=== PATIENT | male | born 1970 | race Caucasian/White ===

== ENCOUNTER → 2016-10-02 | Outpatient (CLI) | payer BC ==
--- NOTE | 2016-10-03 08:29 | KCIC ---
PROCEDURE MRI lumbar spine without contrast. HISTORY Chronic left back pain. Left hip pain. TECHNIQUE Sagittal T1, sagittal T2, sagittal STIR, axial T1, and axial T2 sequences are provided. COMPARISON None. FINDINGS There is 6 millimeters of retrolisthesis at L5-S1. There is otherwise no malalignment. There is fatty replacement of the endplates at several levels, most notably L4-L5 and L5-S1. There is no marrow edema or worrisome marrow lesion. Disc desiccation is noted at L1-L2, L4-L5, and L5-S1. Mild narrowing of disc height is noted at these 3 levels as well, most notably L5-S1. The conus medullaris is normal in signal intensity and in position. Subcutaneous edema is noted. The numbering system assumes 5 lumbar type vertebral bodies. Findings by individual level are as follows: L1-L2: Mild disc bulge is noted without canal or foraminal compromise. L2-L3: Mild disc bulge and minimal facet hypertrophy are noted. There is no canal or foraminal compromise. L3-L4: Mild disc bulge and mild facet hypertrophy are noted. Epidural fat is mildly prominent. There is no canal stenosis, midline AP diameter of the thecal sac 14 millimeters. There is no foraminal narrowing. L4-L5: There is a diffuse disc bulge, slightly eccentric to the left. There is mild facet hypertrophy. Epidural fat is mildly prominent. Midline AP diameter of the thecal sac is minimally narrowed to 11 millimeters. There is lateral recess narrowing, mild and greater on the left. There is contact with the nonexiting nerve root on the left. Foraminal narrowing is [id number]. L5-S1: Disc osteophyte complex is noted with tiny central protrusion. There is minimal facet hypertrophy. There is no canal stenosis, thecal sac diminutive at this level. There is mild foraminal narrowing. IMPRESSION Mild degenerative changes in the lumbar spine, most notably at L4-L5. Electronically signed by: Angel Edwards MD (Oct 03, 2016 08:27:04)
== END | disposition home or self-care (01) ==
LOC: KCIC MRI 14:14
PROVIDERS: ATTEND Student in an Organized Health Care Education/Training Program
DX: M54.42 Lumbago with sciatica, left side (principal); G89.29 Other chronic pain
CPT/HCPCS: 72148